=== PATIENT | male | born 1995 | race Two or more races ===

== ENCOUNTER 2018-09-13 11:54 | Emergency (ER) | payer MEDICAID, OTHER ==
[~2018-09-13] VITALS: Ht 175.3 cm; Wt 68.0 kg
[2018-09-13 11:57] VITALS: BP 129/78
== END 2018-09-13 13:14 | disposition home or self-care (01) ==
LOC: ED 13:08
DX: J06.9 Acute upper respiratory infection, unspecified (principal)
CPT/HCPCS: 71046; 87081; 87147; 87880; 99284

== ENCOUNTER 2019-06-16 14:24 | Emergency (ER) | payer MEDICAID ==
[~2019-06-16] VITALS: Ht 175.3 cm; Wt 66.1 kg
--- NOTE | 2019-06-16 14:48 | NUR ---
TASK RN: PT BELONGINGS IN ROOM. PT IS NOT IN ROOM. CONFIRMED WITH CT THAT PT IS IN IMAGING
[2019-06-16] MEDS ORDERED: LIDOCAINE-MPF 1%, 5ML ONE (15:05)
--- NOTE | 2019-06-16 15:15 | NUR ---
TASK RN: PT SITTING UP IN [place] [facility] NOTED. NO GROSS NEURO DEFICITS NOTED. PT DENIES [place]FT[place]/CHANGES IN VISION/N/V. ERP AT BEDSIDE. SET UP FOR IRRIGATION/KATHARINE COMPLETE.
[2019-06-16] MEDS ORDERED: LIDOCAINE 1%, 10ML INFIL ONE (15:30)
[2019-06-16 16:12] VITALS: BP 116/64
== END 2019-06-16 16:13 | disposition home or self-care (01) ==
LOC: ED 15:25
DX: S01.01XA Laceration without foreign body of scalp, initial encounter (principal); Y04.8XXA Assault by other bodily force, initial encounter; Y93.89 Activity, other specified; Y92.89 Other specified places as the place of occurrence of the external cause; Y99.8 Other external cause status
CPT/HCPCS: 12031; 70450; 70486; 93005; 99285

== ENCOUNTER 2019-06-23 10:38 | Emergency (ER) | payer MEDICAID ==
[~2019-06-23] VITALS: Ht 175.3 cm; Wt 69.5 kg
[2019-06-23 10:43] VITALS: BP 109/67
== END 2019-06-23 10:53 | disposition home or self-care (01) ==
LOC: ED 10:49
DX: S01.91XD Laceration without foreign body of unspecified part of head, subsequent encounter (principal); X58.XXXD Exposure to other specified factors, subsequent encounter
CPT/HCPCS: 99281

== ENCOUNTER 2020-01-30 14:07 | Emergency (ER) | payer MEDICAID ==
[~2020-01-30] VITALS: Ht 175.3 cm; Wt 69.3 kg
[2020-01-30 14:27] VITALS: BP 100/59
--- NOTE | 2020-01-30 15:51 | NUR ---
LODGE OFFICER: CALLED FOR ROOM, NO ANSWER
--- NOTE | 2020-01-30 16:08 | NUR ---
STATOR CONNECTOR: CALLED FOR ROOM, NO ANSWER
--- NOTE | 2020-01-30 16:24 | NUR ---
OFFICE MANAGER RECEPTIONIST: PT CALLED FOR ROOM, NO ANSWER
== END 2020-01-30 16:26 | disposition left against medical advice (07) ==
LOC: ED 16:20
DX: M79.641 Pain in right hand (principal)
CPT/HCPCS: 99283